=== PATIENT | female | born 1985 | race American Indian/Alaskan Native ===

== ENCOUNTER 2018-07-12 21:29 | Emergency (ER) | payer BC ==
--- NOTE | 2018-07-12 21:41 | Emergency Department Report ---
Chief Complaint: Abdominal Pain Stated Complaint: ABD PAIN CHILLS Time Seen by Provider: 07/12/18 21:37 - HPI History of Present Illness: Pt is c/o lower abdominal pain that began a couple of days ago pt describes the pain as a burning/cramping (+) chills, nausea denies any urinary sx mildly tachycardic, otherwise vitals stable MSE complete - Exam Vital Signs: Vital Signs 07/12/18 21:33 Temperature 98.7 F Pulse Rate 107 H Respiratory 18 Rate Blood Pressure 140/92 O2 Sat by Pulse 97 Oximetry MSE screening note: Focused history and physical exam performed. Due to findings the following was ordered: abdominal pain protocol ED Disposition for MSE Condition: Stable Instructions: Abdominal Pain (ED)
[2018-07-12 22:12] LABS: Basophils % (Auto) 0.4 % (0.0-1.8); Eosinophils % (Auto) 0.7 % (0.0-4.3); Hematocrit 41.8 % (30.3-42.9); Hemoglobin 14.4 gm/dl (10.1-14.3); Lymphocytes # (Auto) 0.7 K/mm3 (1.2-5.4); Mean Corpuscular HGB Conc 35 % (30-34); Mean Corpuscular Volume 87 fl (79-97); Monocytes # (Auto) 0.3 K/mm3 (0.0-0.8); Monocytes % (Auto) 4.9 % (0.0-7.3); Platelet Count 315 K/mm3 (140-440); Red Blood Count 4.79 M/mm3 (3.65-5.03); Red Cell Distribution Width 13.5 % (13.2-15.2)
--- NOTE | 2018-07-12 22:29 | Emergency Department Report ---
ED Abdominal Pain HPI - General Chief Complaint: Abdominal Pain Stated Complaint: ABD PAIN CHILLS Time Seen by Provider: 07/12/18 21:37 Source: patient Mode of arrival: Ambulatory Limitations: No Limitations - History of Present Illness Initial Comments: This this 33-year-old female, doesn't emergency department complaining of vague centralized abdominal pain that throbbing and burning jimmy mild to moderate in nature. States associated with some nausea, but she denies any vaginal bleeding, dysuria, fever, chills, chest pain, palpitations, hematuria, dysuria, constipation, diarrhea, trauma. States that she came in because she began to experience some diffuse body aches. She just wanted to get checked. MD Complaint: abdominal pain Severity scale (0 -10): 6 - Related Data Previous Rx's Medication Instructions Recorded Last Taken Type Hyoscyamine Subl [Levsin Sl 0.125 0.125 mg SL Q4HR PRN #20 tablet 07/13/18 Unknown Rx TAB] Allergies Allergy/AdvReac Type Severity Reaction Status Date / Time No Known Allergies Allergy Verified 07/12/18 21:33 ED Review of Systems ROS: Stated complaint: ABD PAIN CHILLS Other details as noted in HPI Constitutional: denies: chills, fever Eyes: denies: eye pain, eye discharge, vision change ENT: denies: ear pain, throat pain Respiratory: denies: cough, shortness of breath, wheezing Cardiovascular: denies: chest pain, palpitations Endocrine: no symptoms reported Gastrointestinal: denies: abdominal pain, nausea, diarrhea Genitourinary: denies: urgency, dysuria, discharge Musculoskeletal: denies: back pain, joint swelling, arthralgia Skin: denies: rash, lesions Neurological: denies: headache, weakness, paresthesias Psychiatric: denies: anxiety, depression Hematological/Lymphatic: denies: easy bleeding, easy bruising ED Past Medical Hx - Past Medical History Previous Medical History?: No - Surgical History Past Surgical History?: No - Social History Smoking Status: Never Smoker Substance Use Type: None - Medications Home Medications: Home Medications Medication Instructions Recorded Confirmed Last Taken Type Hyoscyamine Subl [Levsin Sl 0.125 0.125 mg SL Q4HR PRN #20 tablet 07/13/18 Unknown Rx TAB] ED Physical Exam - General Limitations: No Limitations General appearance: alert, in no apparent distress - Head Head exam: Present: atraumatic, normocephalic - Eye Eye exam: Present: normal appearance, PERRL Pupils: Present: normal accommodation - ENT ENT exam: Present: normal exam, normal orophraynx, mucous membranes moist, TM's normal bilaterally - Neck Neck exam: Present: normal inspection - Respiratory Respiratory exam: Present: normal lung sounds bilaterally. Absent: respiratory distress - Cardiovascular Cardiovascular Exam: Present: regular rate, normal rhythm. Absent: systolic murmur, diastolic murmur, rubs, gallop - GI/Abdominal GI/Abdominal exam: Present: soft, tenderness (no tenderness with light touch. There is some mild tenderness with deep touch centrally located. No Bishop sign, no Rovsing, no Villalobos Valadez. Abdomen is soft), normal bowel sounds. Absent: distended, guarding, rebound, hyperactive bowel sounds, hypoactive bowel sounds, organomegaly, bruit - Extremities Exam Extremities exam: Present: normal inspection - Back Exam Back exam: Present: normal inspection - Neurological Exam Neurological exam: Present: alert, oriented X3 - Psychiatric Psychiatric exam: Present: normal affect, normal mood - Skin Skin exam: Present: warm, dry, intact, normal color. Absent: rash ED Course Vital Signs 07/12/18 07/12/18 21:33 22:46 Temperature 98.7 F 98.4 F Pulse Rate 107 H 69 Respiratory 18 20 Rate Blood Pressure 140/92 Blood Pressure 138/89 [Right] O2 Sat by Pulse 97 100 Oximetry ED Medical Decision Making - Lab Data Result diagrams: 07/12/18 21:46 07/12/18 21:46 - Medical Decision Making Patient is resting comfortable in no acute distress, tolerating orals pain is very mild discussed with her the need to follow-up with primary care provider for further evaluation. Discussed her her labs and advised home and to return to the emergency department versus a primary care doctor. Critical care attestation.: If time is entered above; I have spent that time in minutes in the direct care of this critically ill patient, excluding procedure time. ED Disposition Clinical Impression: Abdominal pain Disposition: DC-01 TO HOME OR SELFCARE Is pt being admited?: No Does the pt Need Aspirin: No Condition: Stable Instructions: Abdominal Pain (ED) Prescriptions: Hyoscyamine Subl [Levsin Sl 0.125 TAB] 0.125 mg SL Q4HR PRN #20 tablet PRN Reason: Spasms Referrals: PRIMARY CARE, [Primary Care Provider] - 3-5 Days [facility] [Provider Group] - 3-5 Days
[2018-07-12 22:32] LABS: BUN/Creatinine Ratio 13; Blood Urea Nitrogen 10 mg/dL (7-17); Hemolysis Index 11
[2018-07-12 22:39] LABS: Bilirubin,Urine NEG (Negative); Blood,Urine NEG (Negative); Color,Urine Yellow (Yellow); Mucus,Urine 3+ /HPF
[2018-07-12 22:47] VITALS: BP 138/89
[2018-07-12 22:51] LABS: HCG Qualitative,Urine Negative (Negative)
== END 2018-07-13 00:15 | disposition home or self-care (01) ==
LOC: ED 21:29
DX: R10.9 Unspecified abdominal pain (principal)
CPT/HCPCS: 36415; 80048; 81001; 81025; 83690; 85025